=== PATIENT | male | born 1980 | race African-American/Black ===

== ENCOUNTER 2018-10-15 08:45 | Emergency (ER) | payer MEDICAID ==
[2018-10-15 09:06] VITALS: BP 158/92
[2018-10-15] MEDS ORDERED: COCAINE 4 ML BOTTLE TOP STA ×2 (12:12→12:35)
[2018-10-15] MEDS ORDERED: AMOXICILLIN 250 MG CAPSULE PO STA (13:30)
--- NOTE | 2018-10-15 13:45 | ED Physician Documentation ---
PD HPI HEENT - Stated complaint Stated Complaint: NOSE BLEED - Chief complaint Chief Complaint: Heent - Additional information Additional information: 38-year-old male presents the emergency department with ongoing right nosebleed. The patient's been controlled at home with pressure but returns today because of ongoing bleeding with blowing his nose. The patient denies being on any anticoagulants. No dizziness or lightheadedness. No recent trauma or injury. No other associated symptoms. Symptoms are described as moderate Review of Systems Constitutional: denies: Fever, Chills Eyes: denies: Discharge Ears: denies: Ear pain Nose: reports: Epistaxis Cardiac: denies: Chest pain / pressure Respiratory: denies: Cough Musculoskeletal: denies: Neck pain Neurologic: denies: Generalized weakness Immunocompromised: denies: Chemotherapy PD PAST MEDICAL HISTORY - Past Medical History Cardiovascular: Hypertension - Past Surgical History Past Surgical History: No - Present Medications Home Medications: Ambulatory Orders Medication Instructions Recorded Confirmed Amoxicillin 875 mg PO BID #10 tablet 10/15/18 - Allergies Allergies/Adverse Reactions: Allergies Allergy/AdvReac Type Severity Reaction Status Date / Time naproxen Allergy Mild Rash Verified 10/15/18 09:06 - Social History Does the pt smoke?: Yes Smoking Status: Current every day smoker Does the pt drink ETOH?: Yes Does the pt have substance abuse?: No - Immunizations Immunizations are current?: Yes PD ED PE NORMAL - General General: Alert and oriented X 3, No acute distress - HEENT HEENT: Atraumatic, PERRL, EOMI, Other (The patient has an active nosebleed out of the right nears, it appears to be an anterior bleed and is quite brisk. The left naris is unremarkable. The posterior pharynx is unremarkable.) - Derm Derm: Normal color - Extremities Extremities: No deformity - Neuro Neuro: Alert and oriented X 3, Normal speech - Psych Psych: Normal affect Results - Vitals Vitals: Vital Signs - 24 hr 10/15/18 09:03 Temperature 36.4 C L Heart Rate 73 Respiratory 18 Rate Blood Pressure 158/92 H O2 Saturation 99 Oxygen O2 Source Room air Procedures - Epistaxis Site: Right Preparation: Clots removed, Cocaine Treatment: Anterior rhinorocket Other: Observed - no bleeding, Pt tolerated well, Antibiotics prescribed, Referred to ENT PD MEDICAL DECISION MAKING - ED course ED course: The patient's bleeding was controlled with a rapid Rhino, the patient was observed for close to an hour with no rebleeding. The patient appears appropriate for discharge with follow-up by ENT. The patient will return to the emergency department for any worsening or any concerns Departure - Departure Disposition: 01 Home, Self Care Clinical Impression: Epistaxis Condition: Good Instructions: Nosebleed Follow-Up: [facility] [Provider Group] (Call today to schedule a follow-up appointment so that your packing can be removed either or Monday) Prescriptions: Amoxicillin 875 mg PO BID #10 tablet Comments: Please return to the emergency department for any worsening or any concerns
== END 2018-10-15 14:03 | disposition home or self-care (01) ==
LOC: ED 08:45
DX: R04.0 Epistaxis (principal); I10 Essential (primary) hypertension; F17.200 Nicotine dependence, unspecified, uncomplicated
CPT/HCPCS: 30901; 99283; A9270

== ENCOUNTER 2022-05-12 16:20 | Emergency (ER) | payer MEDICAID ==
[2022-05-12 17:02] LABS: BILIRUBIN,URINE NEGATIVE (NEGATIVE); GLUCOSE, URINE (UA) NEGATIVE (NEGATIVE); KETONES,URINE (UA) NEGATIVE (NEGATIVE); LEUKOCYTE ESTERASE, URINE NEGATIVE (NEGATIVE); NITRITE,URINE NEGATIVE (NEGATIVE); OCCULT BLOOD,URINE SMALL (NEGATIVE); PROTEIN,URINE 100 mg/dL (NEGATIVE); UROBILINOGEN,URINE 1 (NORMAL) E.U./dL (NORMAL)
[2022-05-12 17:09] LABS: CLARITY,URINE CLEAR (CLEAR)
[2022-05-12 17:34] LABS: BACTERIA,URINE None Seen /HPF (None Seen); RBC,URINE 0-5 /HPF (0-5); SQUAMOUS EPITHELIAL CELL,UR NONE SEEN (<= Few); WBC,URINE 0-3 /HPF (0-3)
--- NOTE | 2022-05-12 17:50 | ED Physician Documentation ---
PD HPI ABD PAIN - Stated complaint Stated Complaint: ABD PAIN/ RT LEG NUMB - Chief complaint Chief Complaint: Abd Pain - History obtained from History obtained from: Patient - Additional information Additional information: Otherwise healthy 42-year-old gentleman with no history of abdominal surgeries has had lower abdominal pain since Monday. It is progressively getting worse. 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 For the last couple weeks he has noted intermittent and very transient anterior right leg numbness. Unclear if that is related. Review of Systems Ten Systems: 10 systems reviewed and negative Constitutional: denies: Fever, Chills Cardiac: reports: Reviewed and negative Respiratory: reports: Reviewed and negative PD PAST MEDICAL HISTORY - Past Medical History Cardiovascular: Hypertension - Past Surgical History Past Surgical History: No - Present Medications Home Medications: Ambulatory Orders Medication Instructions Recorded Confirmed Amox/Clav 875/125 [Augmentin] 1 each PO TID #30 tablet 05/12/22 - Allergies Allergies/Adverse Reactions: Allergies Allergy/AdvReac Type Severity Reaction Status Date / Time naproxen Allergy Mild Rash Verified 05/12/22 16:38 - Social History Does the pt smoke?: Yes Smoking Status: Current every day smoker Does the pt drink ETOH?: Yes Does the pt have substance abuse?: No - Immunizations Immunizations are current?: Yes PD ED PE NORMAL - Vitals Vital signs reviewed: Yes - General General: Alert and oriented X 3, No acute distress - Cardiac Cardiac: RRR, No murmur - Respiratory Respiratory: No respiratory distress, Clear bilaterally - Abdomen Abdomen: Other (Focally but mildly tender in the right lower quadrant with no surgical signs.) - Back Back: No CVA TTP, No spinal TTP - Extremities Extremities: Other (The patient has equal and normal Achilles and patellar reflexes bilaterally. Normal sensation in all areas of the legs. Patient denies saddle anesthesia. Normal strength in flexion-extension at the ankles, knees, and flexion of the hips.) - Neuro Neuro: Alert and oriented X 3 Results - Vitals Vitals: Vital Signs - 24 hr 05/12/22 05/12/22 16:35 19:58 Temperature 36.7 C Heart Rate 88 70 Respiratory 18 16 Rate Blood Pressure 172/113 H 149/112 H O2 Saturation 100 99 Oxygen O2 Source Room air - Labs Labs: Laboratory Tests 05/12/22 05/12/22 05/12/22 16:45 18:07 18:31 WBC 6.8 RBC 4.88 Hgb 13.2 L Hct 41.0 L MCV 84.0 MCH 27.0 MCHC 32.2 RDW 13.0 Plt Count 269 MPV 11.0 Neut # (Auto) 2.7 Lymph # (Auto) 3.3 [place] # (Auto) 0.5 Eos # (Auto) 0.3 Baso # (Auto) 0.0 Absolute Nucleated RBC 0.00 Nucleated RBC % 0.0 Sodium 137 Potassium 4.2 Chloride 103 Carbon Dioxide 27 Anion Gap 7.0 BUN 14 Creatinine 1.1 Estimated GFR (MDRD) 88 L Glucose 92 Calcium 9.6 Total Bilirubin 0.6 AST 33 ALT 38 Alkaline Phosphatase 71 Total Protein 7.7 Albumin 4.4 Globulin 3.3 Albumin/Globulin Ratio 1.3 Lipase 36 Urine Color YELLOW Urine Clarity CLEAR Urine pH 7.0 Ur Specific Ada 1.020 Urine Protein 100 H Urine Glucose (UA) NEGATIVE Urine Ketones NEGATIVE Urine Occult Blood SMALL H Urine Nitrite NEGATIVE Urine Bilirubin NEGATIVE Urine Urobilinogen 1 (NORMAL) Ur Leukocyte Esterase NEGATIVE Urine RBC 0-5 Urine WBC 0-3 Ur Squamous Epith Cells NONE SEEN Urine Bacteria None Seen Ur Microscopic Review INDICATED Urine Culture Comments NOT INDICATED - Rads (name of study) CT of the abdomen pelvis with IV contrast demonstrates sigmoid diverticulitis Radiology: EMP read contemporaneously PD MEDICAL DECISION MAKING - ED course Complexity details: reviewed results, re-evaluated patient, considered differential Departure - Departure Disposition: 01 Home, Self Care Clinical Impression: Diverticulitis of gastrointestinal tract Condition: Good Record reviewed to determine appropriate education?: Yes Instructions: Diet Low Residue, ED Diverticulitis Prescriptions: Amox/Clav 875/125 [Augmentin] 1 each PO TID #30 tablet Comments: As discussed, the cause of your pain tonight is apparently a case of diverticulitis, and inflammation of outpouchings of the colon. I would like you to eat a low residue diet for the next 2 days. Instructions are attached. You should also follow-up with primary care for reevaluation, and consideration of colonoscopy in around 6 weeks. I sent your prescription for antibiotics to the [facility] in [place]. Return for new or worsening symptoms. Discharge Date/Time: 05/12/22 19:59
[2022-05-12] MEDS ORDERED: iohexoL-300 100 ML VIAL ONE (18:04)
[2022-05-12 18:13] LABS: BASOPHILS % (AUTO) 0.4 %; EOSINOPHILS # (AUTO) 0.3 10^3/uL (0.0-0.7); EOSINOPHILS % (AUTO) 3.7 %; HGB - HEMOGLOBIN 13.2 g/dL (14.0-18.0); LYMPHOCYTES # (AUTO) 3.3 10^3/uL (1.5-3.5); LYMPHOCYTES % (AUTO) 48.5 %; MEAN CORPUSCULAR HGB CONC 32.2 g/dL (32.0-36.0); MONOCYTES # (AUTO) 0.5 10^3/uL (0.0-1.0); NEUTROPHILS # (AUTO) 2.7 10^3/uL (1.5-6.6); NEUTROPHILS % (AUTO) 39.3 %; PLT - PLATELET COUNT 269 10^3/uL (130-450); RED BLOOD COUNT 4.88 10^6/uL (4.70-6.10); WHITE BLOOD COUNT 6.8 x10^3/uL (4.8-10.8)
[2022-05-12 18:47] LABS: ALBUMIN 4.4 g/dL (3.2-5.5); ALBUMIN/GLOBULIN RATIO 1.3 (1.0-2.2); BILIRUBIN,TOTAL 0.6 mg/dL (0.2-1.0); CALCIUM 9.6 mg/dL (8.5-10.3); CREATININE 1.1 mg/dL (0.6-1.2); POTASSIUM 4.2 mmol/L (3.5-5.0); TOTAL PROTEIN 7.7 g/dL (6.7-8.2)
--- NOTE | 2022-05-12 19:37 | CT Report ---
PROCEDURE: Abdomen/Pelvis W INDICATIONS: Iv only, rlq pain CONTRAST: IV CONTRAST: Isovue 300 ml: 100 PO CONTRAST: *NO PO CONTRAST TECHNIQUE: After the administration of intravenous contrast, 5 mm thick sections acquired from the diaphragms to the symphysis. 5 mm thick coronal and sagittal reformats were acquired. For radiation dose reducti on, the following was used: automated exposure control, adjustment of mA and/or kV according to teto ent size. COMPARISON: None. FINDINGS: Image quality: Excellent. ABDOMEN: Few scattered sigmoid diverticula. Centered on one of these diverticula in the mid to distal sigmoid colon, a small focus of mild fat stranding with associated sigmoid colonic wall thickening, mucosal h yperenhancement, and submucosal edema is indicative of mild diverticulitis. No findings of perforatio n or peridiverticular abscess. Appendix is normal. Remaining bowel is normal. Mild hepatic steatosis. Solid abdominal visceral structures otherwise demonstrate no significant abnormality. Included porti ons of the lung bases demonstrate no acute finding. No significant osseous abnormality. IMPRESSION: Mild acute sigmoid diverticulitis involving the distal sigmoid colon near just right of which explain s the unusual right-sided pain distribution. Reviewed by: Juve Oliva MD on 05/12/2022 7:36 PM PDT Approved by: Juve Oliva MD on 05/12/2022 7:36 PM PDT Station ID: [id number]
[2022-05-12] MEDS ORDERED: AMOX/CLAV 875 MG/125 MG TABLET PO STA (19:49)
[2022-05-12 19:59] VITALS: BP 149/112
[2022-05-13] MEDS ORDERED: iohexoL-300 100 ML VIAL IVP ONE (02:41)
== END 2022-05-12 19:59 | disposition home or self-care (01) ==
LOC: ED 16:20
DX: K57.32 Diverticulitis of large intestine without perforation or abscess without bleeding (principal); R20.0 Anesthesia of skin; I10 Essential (primary) hypertension; F17.200 Nicotine dependence, unspecified, uncomplicated
CPT/HCPCS: 36415; 74177; 80053; 81001; 83690; 85025; 99283; 99284; A9270; Q9967; 81003; 87086

== ENCOUNTER 2022-10-07 08:04 | Outpatient (CLI) | payer MEDICAID ==
[2022-10-07 11:49] LABS: BASOPHILS % (AUTO) 0.3 %; EOSINOPHILS # (AUTO) 0.1 10^3/uL (0.0-0.7); HCT - HEMATOCRIT 43.3 % (42.0-52.0); LYMPHOCYTES # (AUTO) 2.7 10^3/uL (1.5-3.5); LYMPHOCYTES % (AUTO) 41.5 %; MEAN CORPUSCULAR HEMOGLOBIN 27.4 pg (27.0-31.0); MEAN CORPUSCULAR HGB CONC 32.3 g/dL (32.0-36.0); MEAN CORPUSCULAR VOLUME 84.7 fL (80.0-94.0); MEAN PLATELET VOLUME 11.1 fL (7.4-11.4); MONOCYTES # (AUTO) 0.5 10^3/uL (0.0-1.0); MONOCYTES % (AUTO) 8.4 %; NEUTROPHILS # (AUTO) 3.1 10^3/uL (1.5-6.6); NEUTROPHILS % (AUTO) 47.6 %; PLT - PLATELET COUNT 303 10^3/uL (130-450); RED BLOOD COUNT 5.11 10^6/uL (4.70-6.10); RED CELL DISTRIBUTION WIDTH 12.7 % (12.0-15.0); WHITE BLOOD COUNT 6.4 x10^3/uL (4.8-10.8)
[2022-10-07 12:22] LABS: THYROID STIMULATING HORMONE 2.18 uIU/mL (0.34-5.60)
[2022-10-07 12:33] LABS: ALBUMIN 4.3 g/dL (3.2-5.5); ALBUMIN/GLOBULIN RATIO 1.3 (1.0-2.2); ALKALINE PHOSPHATASE 78 IU/L (42-121); ALT ALANINE AMINOTRANSFERASE 25 IU/L (10-60); AST ASPARTATE AMINOTRANSFERASE 29 IU/L (10-42); BILIRUBIN,TOTAL 0.4 mg/dL (0.2-1.0); BUN - BLOOD UREA NITROGEN 10 mg/dL (6-20); CALCIUM 9.8 mg/dL (8.5-10.3); CARBON DIOXIDE - CO2 28 mmol/L (21-32); CHLORIDE 107 mmol/L (101-111); CHOL/HDL RATIO 7.5 (<5.0); CHOLESTEROL 209 mg/dL; CREATININE 0.9 mg/dL (0.6-1.2); GFR - MDRD 111 (>89); GLUCOSE 115 mg/dL (70-100); HDL CHOLESTEROL 28 mg/dL; LDL CHOLESTEROL,CALCULATED 147 mg/dL; LDL/HDL RATIO 5.3 (<3.6); POTASSIUM 4.3 mmol/L (3.5-5.0); SODIUM 143 mmol/L (135-145); TOTAL PROTEIN 7.7 g/dL (6.7-8.2); TRIGLYCERIDES 168 mg/dL; VLDL CHOLESTEROL 34 mg/dL
== END 2022-10-07 08:05 | disposition home or self-care (01) ==
LOC: LAB.N 08:04
PROVIDERS: ATTEND Physician Assistant
DX: I10 Essential (primary) hypertension (principal); I42.2 Other hypertrophic cardiomyopathy
CPT/HCPCS: 36415; 80050; 80061; 83721

== ENCOUNTER 2022-10-07 11:44 | Outpatient (CLI) | payer MEDICAID ==
--- NOTE | 2022-10-07 16:18 | XRAY Report ---
PROCEDURE: Lumbar Spine Complete INDICATIONS: LEG NUMBNESS,RIGHT TECHNIQUE: 4 views of the lumbar spine were acquired. COMPARISON: None. FINDINGS: Bones: 5 [id number] vertebrae are present. There is normal bony alignment. No vertebral body compression fractures. No suspicious bony lesions. Multilevel disc space narrowing and osteophyte f ormation, as well as facet hypertrophy. Soft tissues: Overlying bowel gas pattern is normal. No suspicious soft tissue calcifications. IMPRESSION: Multilevel degenerative disc and facet disease. No acute fracture. No osseous lesion. If symptoms and/or clinical suspicion for pathology continue, further assessment with repeat plain film s, or advanced imaging (e.g., CT, MRI, or bone scan) is recommended for further assessment. Reviewed by: Della Galvez MD on 10/07/2022 4:17 PM PST Approved by: Della Galvez MD on 10/07/2022 4:17 PM PST Station ID: [id number]
== END 2022-10-07 11:45 | disposition home or self-care (01) ==
LOC: DI 11:44
PROVIDERS: ATTEND Physician Assistant
DX: R20.0 Anesthesia of skin (principal); M47.816 Spondylosis without myelopathy or radiculopathy, lumbar region; M51.36 Other intervertebral disc degeneration, lumbar region; I10 Essential (primary) hypertension; I42.2 Other hypertrophic cardiomyopathy
CPT/HCPCS: 36415; 80050; 80061; 83721